=== PATIENT | female | born 1980 | race Hispanic/Latino ===

== ENCOUNTER 2022-01-14 02:00 | Emergency (ER) | payer SELFPAY ==
[~2022-01-14] VITALS: Ht 160 cm; Wt 76.2 kg
[2022-01-14] MEDS ORDERED: ACETAMINOPHEN 325 MG TAB PO ONE (02:15)
[2022-01-14] MEDS ORDERED: ACETAMINOPHEN 325 MG TAB ONE (02:19)
[2022-01-14 03:03] VITALS: BP 125/77
== END 2022-01-14 03:05 | disposition home or self-care (01) ==
LOC: ER 02:20
DX: R50.9 Fever, unspecified (principal); J40 Bronchitis, not specified as acute or chronic; R05.9 Cough, unspecified; Z20.822 Contact with and (suspected) exposure to COVID-19
CPT/HCPCS: 83518; 87070; 99283; U0002